=== PATIENT | male | born 1945 | race Caucasian/White ===

== ENCOUNTER 2020-11-27 06:46 | Inpatient (IN) | payer MEDICARE ==
[2020-11-27] VITALS (74 sets, daily range): BP systolic 84–171; BP diastolic 32–80
[~2020-11-27] VITALS: Ht 182.9 cm; Wt 147.9 kg
[2020-11-27] MEDS ORDERED: TORSEMIDE20 M1 PO (07:21)
[2020-11-27] MEDS ORDERED: ALLOPURINOL100 MG PO (07:22)
[2020-11-27] MEDS ORDERED: SIMVASTATIN10 MG PO (07:23)
[2020-11-27] MEDS ORDERED: TOPROL XL25 M1 PO (07:23)
[2020-11-27] MEDS ORDERED: NORVASC5 M1 PO (07:24)
[2020-11-27] MEDS ORDERED: PREVALITE4 G1 PO (07:25)
[2020-11-27 07:37] LABS: HEMATOCRIT 55.6 % (39.0-50.0); HEMOGLOBIN 16.4 g/dl (14.0-18.0); IMMATURE GRANULOCYTES 0.8 % (0.0-5.0); MEAN CELL VOLUME 110.1 fL CALC (80.0-100.0); MEAN CORPUSCULAR HGB 32.5 pG CALC (26.0-32.0); MEAN CORPUSCULAR HGB CONC 29.5 g/dL CAL (32.0-36.0); NEUT# 6.64 thou/uL (1.82-7.42); RED BLOOD COUNT 5.05 mill/uL (4.70-6.10); RED CELL DISTRI WIDTH 16.2 % (11.5-15.5)
[2020-11-27 07:50] LABS: ALBUMIN 4.1 g/dL (3.2-5.0); ALKALINE PHOSPHATASE 74 u/l (38-126); ANION GAP 11 (6-22 (CALC)); BILIRUBIN, TOTAL 0.7 mg/dL (0.0-1.4); CARBON DIOXIDE 39 mmol/l (22-30); CHLORIDE 98 mmol/l (95-108); CREATININE 2.4 mg/dL (0.7-1.3); GFR 27 ML/MIN (>=60 (CALC)); GFR FOR AFR.AMER. 32 ML/MIN (>=60 (CALC)); SGOT/AST 29 u/l (19-48); SODIUM 142 mmol/l (137-146); TOTAL PROTEIN 8.2 g/dL (6.3-8.2)
[2020-11-27 07:59] LABS: BUN 50 mg/dL (8-23); BUN/CREATININE RATIO 21 (12-20 (CALC)); POTASSIUM 5.5 mmol/l (3.5-5.1)
[2020-11-27 08:02] LABS: MYOGLOBIN 69 ng/mL (0 - 121)
[2020-11-27 09:18] LABS: URINE BILIRUBIN - DIPSTICK NEGATIVE (NEGATIVE); URINE BLOOD DIPSTICK NEGATIVE (NEGATIVE); URINE COLOR YELLOW; URINE GLUCOSE - DIPSTICK NEGATIVE (NEGATIVE); URINE KETONE NEGATIVE (NEGATIVE); URINE LEUK ESTERASE NEGATIVE (NEGATIVE); URINE PH 5.5 (4.5-8.0); URINE PROTEIN - DIPSTICK 100 mg/dL (NEG-TRACE); URINE SPECIFIC GRAVITY >=1.030; URINE UROBILINOGEN - DIPSTICK 0.2 E.U./dL (0.2)
[2020-11-27 09:19] LABS: URINE EPITHELIAL CELLS FEW EPI/hpf (0-FEW); URINE NITRITE - DIPSTICK NEGATIVE (Negative)
[2020-11-27 09:22] LABS: URINE BACTERIA FEW hpf
[2020-11-28] VITALS (24 sets, daily range): BP systolic 98–156; BP diastolic 42–61
[2020-11-28 05:14] LABS: HEMATOCRIT 54.3 % (39.0-50.0); HEMOGLOBIN 16.3 g/dl (14.0-18.0); MEAN CELL VOLUME 105.2 fL CALC (80.0-100.0); MEAN CORPUSCULAR HGB 31.6 pG CALC (26.0-32.0); RED BLOOD COUNT 5.16 mill/uL (4.70-6.10); RED CELL DISTRI WIDTH 15.5 % (11.5-15.5)
[2020-11-28 05:22] LABS: ALBUMIN 3.4 g/dL (3.2-5.0); BILIRUBIN, TOTAL 0.8 mg/dL (0.0-1.4); CREATININE 1.9 mg/dL (0.7-1.3); TOTAL PROTEIN 6.8 g/dL (6.3-8.2)
[2020-11-29] VITALS (25 sets, daily range): BP systolic 83–228; BP diastolic 39–91
[2020-11-29 05:58] LABS: HEMATOCRIT 51.8 % (39.0-50.0); HEMOGLOBIN 15.6 g/dl (14.0-18.0); MEAN CELL VOLUME 105.9 fL CALC (80.0-100.0); MEAN CORPUSCULAR HGB 31.9 pG CALC (26.0-32.0); MEAN CORPUSCULAR HGB CONC 30.1 g/dL CAL (32.0-36.0); RED BLOOD COUNT 4.89 mill/uL (4.70-6.10); RED CELL DISTRI WIDTH 15.6 % (11.5-15.5)
[2020-11-29 06:20] LABS: BILIRUBIN, TOTAL 0.6 mg/dL (0.0-1.4); CREATININE 1.9 mg/dL (0.7-1.3); POTASSIUM 4.1 mmol/l (3.5-5.1); TOTAL PROTEIN 6.2 g/dL (6.3-8.2)
[2020-11-30] VITALS (8 sets, daily range): BP systolic 155–198; BP diastolic 63–74
[2020-11-30 05:53] LABS: HEMOGLOBIN 17.6 g/dl (14.0-18.0); MEAN CELL VOLUME 102.2 fL CALC (80.0-100.0); MEAN CORPUSCULAR HGB 31.5 pG CALC (26.0-32.0); MEAN CORPUSCULAR HGB CONC 30.9 g/dL CAL (32.0-36.0); RED BLOOD COUNT 5.58 mill/uL (4.70-6.10); RED CELL DISTRI WIDTH 15.4 % (11.5-15.5)
[2020-11-30 06:11] LABS: ALBUMIN 3.5 g/dL (3.2-5.0); BILIRUBIN, TOTAL 0.7 mg/dL (0.0-1.4); CREATININE 1.6 mg/dL (0.7-1.3); POTASSIUM 3.7 mmol/l (3.5-5.1); TOTAL PROTEIN 6.9 g/dL (6.3-8.2)
== END 2020-11-30 09:15 | disposition short-term general hospital (02) | DRG 208 ==
LOC: ED 06:46 → ED-I 08:50 → ED 08:59 → ICU 08:59
PROVIDERS: Emergency Medicine; Family Medicine; Internal Medicine; ADMIT Hospitalist; ATTEND Hospitalist
PROC: 5A09357 Assistance with Respiratory Ventilation, Less than 24 Consecutive Hours, Continuous Positive Airway Pressure (ICD-10-PCS; principal; 2020-11-27)
PROC: 5A1945Z Respiratory Ventilation, 24-96 Consecutive Hours (ICD-10-PCS; 2020-11-27)
PROC: 0BH17EZ Insertion of Endotracheal Airway into Trachea, Via Natural or Artificial Opening (ICD-10-PCS; 2020-11-27)
PROC: 02HV33Z Insertion of Infusion Device into Superior Vena Cava, Percutaneous Approach (ICD-10-PCS; 2020-11-27)
PROC: 0T9B70Z Drainage of Bladder with Drainage Device, Via Natural or Artificial Opening (ICD-10-PCS; 2020-11-27)
PROC: 3E02340 Introduction of Influenza Vaccine into Muscle, Percutaneous Approach (ICD-10-PCS; 2020-11-29)
DX: J96.02 Acute respiratory failure with hypercapnia (principal); J18.9 Pneumonia, unspecified organism; J44.1 Chronic obstructive pulmonary disease with (acute) exacerbation; N17.9 Acute kidney failure, unspecified; G93.49 Other encephalopathy; E87.2 Acidosis; J44.0 Chronic obstructive pulmonary disease with (acute) lower respiratory infection; J96.01 Acute respiratory failure with hypoxia; I11.0 Hypertensive heart disease with heart failure; I50.9 Heart failure, unspecified; E87.5 Hyperkalemia; E78.5 Hyperlipidemia, unspecified; M10.9 Gout, unspecified; R00.1 Bradycardia, unspecified; Z23 Encounter for immunization; Z87.891 Personal history of nicotine dependence; Z20.822 Contact with and (suspected) exposure to COVID-19
CPT/HCPCS: J0692; J1610; J2250; J3370; Q3014; S0164

== ENCOUNTER 2021-06-15 07:35 | Day surgery (SDC) | payer MEDICARE ==
[~2021-06-15] VITALS: Ht 182.9 cm; Wt 106.6 kg
[~2021-06-15 07:35] MED LIST: ADLT ASA LOW81 MG PO; ALLOPURINOL100 MG PO; FUROSEMIDE20 MG PO; NORVASC5 M1 PO; PREVALITE4 G1 PO; SIMVASTATIN10 MG PO; TOPROL XL25 M1 PO; TORSEMIDE20 M1 PO
[2021-06-15 09:57] VITALS: BP 131/73
== END 2021-06-15 09:55 | disposition home or self-care (01) ==
LOC: ENDO 07:35 → ORM 09:30 → ENDO 09:55
PROVIDERS: ATTEND Surgery
PROC: 0DJD8ZZ Inspection of Lower Intestinal Tract, Via Natural or Artificial Opening Endoscopic (ICD-10-PCS; principal; 2021-06-15)
DX: K57.30 Diverticulosis of large intestine without perforation or abscess without bleeding (principal); K64.8 Other hemorrhoids; I11.0 Hypertensive heart disease with heart failure; I50.9 Heart failure, unspecified